=== PATIENT | female | born 1970 | race Caucasian/White ===

== ENCOUNTER 2023-06-26 10:13 | Inpatient (IN) | payer BC ==
[~2023-06-26] VITALS: Ht 165.1 cm; Wt 93.9 kg
[2023-06-26 12:01] LABS: BASOPHILS # (AUTO) 0.1 K/uL (0.0-0.2); BASOPHILS % (AUTO) 0.6 % (0.0-2.0); EOSINOPHILS # (AUTO) 0.3 K/uL (0.0-0.7); EOSINOPHILS % (AUTO) 2.9 % (0.0-6.0); HEMATOCRIT 39 % (33-45); HEMOGLOBIN 12.8 g/dL (11.5-14.8); LYMPHOCYTES # (AUTO) 2.4 K/uL (0.8-4.8); LYMPHOCYTES % (AUTO) 25.7 % (20.0-44.0); MEAN CORPUSCULAR HEMOGLOBIN 28 PG (26.0-33.0); MEAN CORPUSCULAR HGB CONC 33 g/dl (31.0-36.0); MEAN CORPUSCULAR VOLUME 85 fL (82-100); MONOCYTES # (AUTO) 0.7 K/uL (0.1-1.30); MONOCYTES % (AUTO) 7.5 % (2.0-12.0); NEUTROPHILS # (AUTO) 5.8 K/uL (1.8-8.9); NEUTROPHILS % (AUTO) 63.3 % (43.0-81.0); PLATELET COUNT (AUTO) 369 K/uL (150-450); RED BLOOD CELL COUNT(AUTO) 4.52 MIL/uL (4.0-5.2); RED CELL DISTRIBUTION WIDTH 15.2 % (11.5-15.0); WHITE BLOOD COUNT (AUTO) 9.2 K/uL (4.3-11.0)
[2023-06-26 12:23] LABS: CALCIUM, SERUM 8.7 mg/dL (8.5-10.1); CARBON DIOXIDE 27 mmol/L (21-32); CHLORIDE 107 mmol/L (98-107); GLUCOSE 114 mg/dL (74-106); POTASSIUM 3.6 mmol/L (3.5-5.1); SODIUM SERUM 141 mmol/L (136-145); UREA NITROGEN, BLOOD 13 mg/dL (7-18)
[2023-06-26] MEDS ORDERED: hydrALAZINE HCL IV 20 MG VIAL ONE ×2 (12:44→13:15)
[2023-06-26] MEDS: hydrALAZINE HCL IV 20 MG VIAL IV ONE ×2 (12:45→13:14)
[2023-06-26] MEDS ORDERED: OMEP20CA15 PO (13:32)
[2023-06-26] MEDS ORDERED: QUET50TA PO (13:32)
[2023-06-26] MEDS ORDERED: GABA300C PO (13:32)
[2023-06-26] MEDS ORDERED: LOSA50TA39 PO (13:32)
[2023-06-26] MEDS ORDERED: LORA-259 PO (13:32)
[2023-06-26 15:15] VITALS: BP 193/106; TEMP 98.5; O2SAT 96
[2023-06-26] MEDS ORDERED: GABAPENTIN 300 MG CAPSULE PO PRN ×2 (15:30→15:45)
[2023-06-26] MEDS ORDERED: LORAZEPAM 1 MG TABLET PO PRN ×4 (15:30→15:45)
[2023-06-26] MEDS ORDERED: Z GUARD REMEDY 4 OZ OINT TP PRN ×2 (15:30→15:45)
[2023-06-26] MEDS ORDERED: ONDANSETRON HCL/PF 4 MG/2 ML VIAL IVP PRN ×2 (15:30→15:45)
[2023-06-26] MEDS ORDERED: hydrALAZINE HCL IV 20 MG VIAL IV PRN ×2 (15:30→15:45)
[2023-06-26] MEDS ORDERED: MAG HYDROX/AL HYDROX/SIMETH 30 ML UDC PO PRN ×2 (15:30→15:45)
[2023-06-26] MEDS ORDERED: ACETAMINOPHEN 325 MG TABLET PO PRN (15:30)
[2023-06-26] MEDS ORDERED: LOSARTAN POTASSIUM 50 MG TABLET PO SCH (15:30)
[2023-06-26] MEDS ORDERED: MAGNESIUM HYDROXIDE 30 ML UDC PO PRN ×2 (15:30→15:45)
[2023-06-26] MEDS ORDERED: CLONIDINE HCL 0.1 MG TABLET PO PRN ×3 (15:30→15:45)
[2023-06-26 16:00] VITALS: BP 193/106; TEMP 98.5; O2SAT 96
[2023-06-26] MEDS ORDERED: QUETIAPINE FUMARATE 25 MG TABLET PO PRN (16:30)
[2023-06-26] MEDS: CLONIDINE HCL 0.1 MG TABLET PO PRN (16:42)
[2023-06-26] MEDS: ACETAMINOPHEN 325 MG TABLET PO PRN (16:43)
[2023-06-26 20:00] VITALS: BP_SYST 114; BP_DIAS 77; BP_DIAS 79; TEMP 97.6; O2SAT 96
[2023-06-26] MEDS: NIFEdipine XL (30MG) 30 MG TAB PO SCH (21:16)
[2023-06-27] VITALS: BP 119/79; TEMP 97.8; O2SAT 95
[2023-06-27 04:00] VITALS: BP 143/87; TEMP 98.2; O2SAT 100
[2023-06-27 06:55] LABS: BASOPHILS # (AUTO) 0.1 K/uL (0.0-0.2); BASOPHILS % (AUTO) 0.9 % (0.0-2.0); EOSINOPHILS # (AUTO) 0.2 K/uL (0.0-0.7); EOSINOPHILS % (AUTO) 3.2 % (0.0-6.0); HEMATOCRIT 39 % (33-45); HEMOGLOBIN 12.8 g/dL (11.5-14.8); LYMPHOCYTES # (AUTO) 2.2 K/uL (0.8-4.8); LYMPHOCYTES % (AUTO) 30.3 % (20.0-44.0); MEAN CORPUSCULAR HEMOGLOBIN 28 PG (26.0-33.0); MEAN CORPUSCULAR HGB CONC 33 g/dl (31.0-36.0); MEAN CORPUSCULAR VOLUME 85 fL (82-100); MONOCYTES # (AUTO) 0.7 K/uL (0.1-1.30); MONOCYTES % (AUTO) 9.2 % (2.0-12.0); NEUTROPHILS # (AUTO) 4.2 K/uL (1.8-8.9); NEUTROPHILS % (AUTO) 56.4 % (43.0-81.0); PLATELET COUNT (AUTO) 280 K/uL (150-450); RED BLOOD CELL COUNT(AUTO) 4.54 MIL/uL (4.0-5.2); RED CELL DISTRIBUTION WIDTH 15.3 % (11.5-15.0); WHITE BLOOD COUNT (AUTO) 7.4 K/uL (4.3-11.0)
[2023-06-27 07:21] LABS: POTASSIUM 3.8 mmol/L (3.5-5.1)
[2023-06-27 08:00] VITALS: BP 156/98; TEMP 97.5; O2SAT 100
[2023-06-27] MEDS: PANTOPRAZOLE 40 MG TABLET.DR PO SCH (08:50)
[2023-06-27 08:51] VITALS: BP 156/98
[2023-06-27] MEDS: LOSARTAN POTASSIUM 50 MG TABLET PO SCH (08:51)
[2023-06-27] MEDS ORDERED: LOSARTAN POTASSIUM 50 MG TABLET PO SCH (09:00)
[2023-06-27] MEDS ORDERED: OMEPRAZOLE 20 MG CAPSULE.DR PO SCH (09:00)
[2023-06-27] MEDS ORDERED: NIFE-35 PO (10:52)
== END 2023-06-27 13:06 | DRG 305 ==
LOC: ER 10:19 → TELE1 16:08
PROVIDERS: ADMIT Internal Medicine; ATTEND Internal Medicine
PROC: 05HB33Z Insertion of Infusion Device into Right Basilic Vein, Percutaneous Approach (ICD-10-PCS; principal; 2023-06-26)
DX: I16.0 Hypertensive urgency (principal); F15.93 Other stimulant use, unspecified with withdrawal; I10 Essential (primary) hypertension; I25.10 Atherosclerotic heart disease of native coronary artery without angina pectoris; F41.9 Anxiety disorder, unspecified; G62.9 Polyneuropathy, unspecified; I25.2 Old myocardial infarction; Z91.199 Patient's noncompliance with other medical treatment and regimen due to unspecified reason; Z90.49 Acquired absence of other specified parts of digestive tract; Z98.891 History of uterine scar from previous surgery; Z88.8 Allergy status to other drugs, medicaments and biological substances; Z88.0 Allergy status to penicillin; F10.11 Alcohol abuse, in remission; Y90.9 Presence of alcohol in blood, level not specified
CPT/HCPCS: 36415; 71045-TC; 80048-TC; 84484-TC; 85025-TC; G0378; J0360